=== PATIENT | male | born 1945 | race Caucasian/White ===

== ENCOUNTER → 2017-07-01 07:04 | Outpatient (CLI) | payer OTHER | END | disposition home or self-care (01) | LOC: LAB 07:04 | DX: D63.1 Anemia in chronic kidney disease (principal); N18.3 Chronic kidney disease, stage 3 (moderate); D63.8 Anemia in other chronic diseases classified elsewhere; D51.8 Other vitamin B12 deficiency anemias; I12.9 Hypertensive chronic kidney disease with stage 1 through stage 4 chronic kidney disease, or unspecified chronic kidney disease; I10 Essential (primary) hypertension; D50.8 Other iron deficiency anemias; K90.89 Other intestinal malabsorption; R80.8 Other proteinuria; N18.2 Chronic kidney disease, stage 2 (mild); D55.8 Other anemias due to enzyme disorders ==

== ENCOUNTER 2017-11-04 06:40 | Outpatient (CLI) | payer OTHER | END 2017-11-04 06:52 | disposition home or self-care (01) | LOC: LAB 06:40 | DX: D50.8 Other iron deficiency anemias (principal); I10 Essential (primary) hypertension; D63.1 Anemia in chronic kidney disease; N18.3 Chronic kidney disease, stage 3 (moderate) ==

== ENCOUNTER 2018-02-02 07:19 | Outpatient (CLI) | payer OTHER | END 2018-02-02 07:37 | disposition home or self-care (01) | LOC: LAB 07:19 | DX: N18.3 Chronic kidney disease, stage 3 (moderate) (principal); D63.8 Anemia in other chronic diseases classified elsewhere; D51.8 Other vitamin B12 deficiency anemias; I12.9 Hypertensive chronic kidney disease with stage 1 through stage 4 chronic kidney disease, or unspecified chronic kidney disease; I10 Essential (primary) hypertension; D50.8 Other iron deficiency anemias; E55.9 Vitamin D deficiency, unspecified; K90.89 Other intestinal malabsorption; R97.0 Elevated carcinoembryonic antigen [CEA]; R97.8 Other abnormal tumor markers; R97.20 Elevated prostate specific antigen [PSA] ==

== ENCOUNTER 2018-05-25 07:09 | Outpatient (CLI) | payer OTHER | END 2018-05-25 07:18 | disposition home or self-care (01) | LOC: LAB 07:09 | DX: R97.20 Elevated prostate specific antigen [PSA] (principal); D63.1 Anemia in chronic kidney disease; N18.3 Chronic kidney disease, stage 3 (moderate); D63.8 Anemia in other chronic diseases classified elsewhere; D51.8 Other vitamin B12 deficiency anemias; I10 Essential (primary) hypertension; D50.8 Other iron deficiency anemias; K90.89 Other intestinal malabsorption; R97.0 Elevated carcinoembryonic antigen [CEA]; R97.8 Other abnormal tumor markers ==

== ENCOUNTER 2019-05-10 07:15 | Outpatient (CLI) | payer OTHER | END 2019-05-10 07:21 | disposition home or self-care (01) | LOC: LAB 07:15 | DX: N18.3 Chronic kidney disease, stage 3 (moderate) (principal); R80.8 Other proteinuria ==

== ENCOUNTER 2019-12-15 07:18 | Outpatient (CLI) | payer OTHER | END 2019-12-15 07:30 | disposition home or self-care (01) | LOC: LAB 07:18 | PROVIDERS: ATTEND Internal Medicine Hematology & Oncology | DX: D50.8 Other iron deficiency anemias (principal); D51.8 Other vitamin B12 deficiency anemias; E03.8 Other specified hypothyroidism; D63.8 Anemia in other chronic diseases classified elsewhere; C44.42 Squamous cell carcinoma of skin of scalp and neck; D63.1 Anemia in chronic kidney disease; N18.3 Chronic kidney disease, stage 3 (moderate); I12.9 Hypertensive chronic kidney disease with stage 1 through stage 4 chronic kidney disease, or unspecified chronic kidney disease ==

== ENCOUNTER 2021-05-12 16:20 | Emergency (ER) | payer OTHER ==
[~2021-05-12] VITALS: Ht 165.1 cm; Wt 77.1 kg
[2021-05-12] MEDS ORDERED: DIOVAN320 MG PO (16:41)
[2021-05-12] MEDS ORDERED: SIMVASTATIN20 MG PO (16:41)
== END 2021-05-12 22:33 | disposition home or self-care (01) ==
LOC: ER 16:20
DX: T14.90XA Injury, unspecified, initial encounter (principal); W18.30XA Fall on same level, unspecified, initial encounter; Y92.9 Unspecified place or not applicable

== ENCOUNTER → 2021-09-17 | Emergency (ER) | payer OTHER ==
[~2021-09-17] VITALS: Ht 154.9 cm; Wt 65.8 kg
[~2021-09-17] MED LIST: DIOVAN320 MG PO; SIMVASTATIN20 MG PO
== END | disposition home or self-care (01) ==
LOC: ER 05:48
DX: H10.33 Unspecified acute conjunctivitis, bilateral (principal); B34.9 Viral infection, unspecified; Z20.822 Contact with and (suspected) exposure to COVID-19; Z91.018 Allergy to other foods

== ENCOUNTER 2021-12-01 15:40 | Inpatient (IN) | payer OTHER ==
[~2021-12-01] VITALS: Ht 170.2 cm; Wt 77.1 kg
[2021-12-01] MEDS ORDERED: PREDNISONE 20 MG. (16:11)
[2021-12-01] MEDS ORDERED: ZYLOPRIM100 M1 (16:11)
[2021-12-01] MEDS ORDERED: CELLCEPT500 MG (16:12)
[2021-12-01] MEDS ORDERED: AMLODIPINE 10 MG. (16:13)
--- NOTE | 2021-12-01 16:13 | NUR ---
PTE SE RECIBE POR DOLOR DE [place]OM[place] VOMITOS Y MAREOS REFIERE FAMILIAR Y PTE.
--- NOTE | 2021-12-01 16:51 | NUR ---
SE ADMINISTRAN MEDICAMENTOS Y BARBI DE MUESTRAS JEVON ORDEN MEDICA. SE ORIENTA A PTE SOBRE LOS MISMOS Y REFIERE COMPRENDER. TOLERA PROCEDIMIENTO. PTE PERMANECE EN SANG CON BARANDAS ELEVADAS. PENDIENTE XRAY ABDOMINAL.
--- NOTE | 2021-12-01 18:37 | NUR ---
SE REGULA LIQUIDOS IV A BAJAR A 200ML/HRS.
== END 2021-12-07 20:35 | disposition home or self-care (01) | DRG 418 ==
LOC: ER 15:40 → MEDJ 22:36 → SURH 12-03 15:44 → MEDJ 12-03 16:38
PROVIDERS: Specialist; ADMIT Internal Medicine; ATTEND Internal Medicine
PROC: BW21ZZZ Computerized Tomography (CT Scan) of Abdomen and Pelvis (ICD-10-PCS; 2021-12-01)
PROC: BW40ZZZ Ultrasonography of Abdomen (ICD-10-PCS; 2021-12-01)
PROC: BF37ZZZ Magnetic Resonance Imaging (MRI) of Pancreas (ICD-10-PCS; 2021-12-04)
PROC: 3E0T3BZ Introduction of Anesthetic Agent into Peripheral Nerves and Plexi, Percutaneous Approach (ICD-10-PCS; 2021-12-06)
PROC: 0FT44ZZ Resection of Gallbladder, Percutaneous Endoscopic Approach (ICD-10-PCS; principal; 2021-12-06 07:15)
DX: K85.10 Biliary acute pancreatitis without necrosis or infection (principal); D84.821 Immunodeficiency due to drugs; N18.4 Chronic kidney disease, stage 4 (severe); K80.50 Calculus of bile duct without cholangitis or cholecystitis without obstruction; D63.8 Anemia in other chronic diseases classified elsewhere; E87.5 Hyperkalemia; I12.9 Hypertensive chronic kidney disease with stage 1 through stage 4 chronic kidney disease, or unspecified chronic kidney disease; Z79.52 Long term (current) use of systemic steroids; Z20.822 Contact with and (suspected) exposure to COVID-19

== ENCOUNTER 2022-04-11 05:14 | Inpatient (IN) | payer OTHER ==
[~2022-04-11] VITALS: Ht 160 cm; Wt 73.5 kg
[~2022-04-11 05:14] MED LIST changes: +AMLODIPINE 10 MG.; +CELLCEPT500 MG; +PREDNISONE 20 MG.; +ZYLOPRIM100 M1
--- NOTE | 2022-04-11 05:35 | NUR ---
PACIENTE ALERTA Y ORIENTADO X3, QUIEN VIENE POR REFERIDO MEDICO DEL DR. PAULA JACK POR ANEMIA. SE MONITOREAN VS Y SE UBICA
--- NOTE | 2022-04-11 07:40 | NUR ---
PACIENTE EVALUADO POR EL QUIEN ORDENA TRATAMIENTO MEDICO. SE REALIZAN MUESTRAS DE LABORATORIO BAJO MEDIDAS ASEPTICAS Y SE ADMINISTRAN MEDICAMENTOS JEVON ORDEN MEDICA. SE HACE ENTREGA DE ENVASE U/A.
--- NOTE | 2022-04-11 09:13 | NUR ---
SE REALIZA REQUISION DE 2 UNIDADES DE PRBC EN HOLD.SE REALIZAN TUBOS PILOTOS Y SE ENVIAN A LABORATORIO. SE REALIZAN VENOPUNCIONES X2 PATENTES Y LIBRES DE EDEMA. SE LLAMA A Y SE NOTIFICAN PANICO DE HGB EN 7.1 ZOILA INDICA ACTIVAR LAS 2 UNIDADES EN HOLD. SE LLAMA A BANCO DE WILLIAM DE [employer] CON MS.AMARAL Y SE ACTIVAN LAS 2 UNIDADES PARA TRANSFUNDIR.
--- NOTE | 2022-04-11 17:20 | NUR ---
SE RECIBE PTE ALERTA Y ORIENTADO X3 EN SANG ACOMPANADO DE FAMILIAR, PTE CON H/L X2 COLOCADOS BEE DE EDEMA Y ENROJECIMIENTO. PTE CON 2 UNIDADES DE PRC COMPLETAS PARA TRANSFUNDIR PENDIENTES. SE RECIBE LLAMADA DE BANCO DE SANGR SOBRE DISPONIBILIDAD DE LAS MISMA A LAS 4;00PM.
== END 2022-04-12 13:31 | disposition home or self-care (01) | DRG 812 ==
LOC: ER 05:14 → MEDI 18:52
PROVIDERS: ADMIT Internal Medicine; ATTEND Internal Medicine
PROC: 30233N1 Transfusion of Nonautologous Red Blood Cells into Peripheral Vein, Percutaneous Approach (ICD-10-PCS; principal; 2022-04-11)
DX: D50.0 Iron deficiency anemia secondary to blood loss (chronic) (principal); D63.8 Anemia in other chronic diseases classified elsewhere; I10 Essential (primary) hypertension

== ENCOUNTER 2022-10-10 06:39 | Inpatient (IN) | payer OTHER ==
[~2022-10-10] VITALS: Ht 162.6 cm; Wt 74.4 kg
--- NOTE | 2022-10-10 06:49 | NUR ---
PACIENTE ALERTA Y ORIENTADO X 3. REFIERE DOLOR DE ESPALDA BAJA HACE UN MES. EL MISMO PRESENTA REFERIDO MEDICO DEL REINA DE QUINCY PARA POSIBLE ADMISION. SE PRESENTA REFERIDO A DR BRYSON Y SE JABARI PACIENTE EN MARIANNA DE ESPERA.
--- NOTE | 2022-10-10 08:56 | NUR ---
PTE EVALUADO POR DR SCOTT. SE ORIENTA A PTE SOBRE [place] MEDICO Y REFIERE ENTENDER. SE COLECTAN MUESTRAS DE WILLIAM BAJO MEDIDAS ASEPTICAS. SE CANALIZA EN LEFT ARM #[id number]. SE REALIZA EKG. SE NOTIFICA X-RAY.
[2022-10-13] MEDS ORDERED: ACETAZOLAMIDE250 MG (11:20)
[2022-10-13] MEDS ORDERED: PILOCARPINE HCL15 M3 (11:22)
[2022-10-13] MEDS ORDERED: CIPROFLOXACIN2.5 ML (11:22)
[2022-10-13] MEDS ORDERED: DORZOLAMIDE-TIM10 ML (11:22)
[2022-10-13] MEDS ORDERED: AMLODIPINE BESY10 MG (11:23)
[2022-10-13] MEDS ORDERED: FAMOTIDINE40 MG (11:23)
== END 2022-10-30 13:49 | disposition home or self-care (01) | DRG 673 ==
LOC: ER 06:39 → MEDJ 17:17 → MEDI 17:17 → MEDJ 10-13 10:29
PROVIDERS: General Practice; Internal Medicine; Internal Medicine Infectious Disease; Internal Medicine Nephrology; ADMIT Internal Medicine; ATTEND Internal Medicine
PROC: 02H633Z Insertion of Infusion Device into Right Atrium, Percutaneous Approach (ICD-10-PCS; principal; 2022-10-12)
PROC: B548ZZA Ultrasonography of Superior Vena Cava, Guidance (ICD-10-PCS; 2022-10-12)
PROC: 5A1D70Z Performance of Urinary Filtration, Intermittent, Less than 6 Hours Per Day (ICD-10-PCS; 2022-10-14)
PROC: 5A1D70Z Performance of Urinary Filtration, Intermittent, Less than 6 Hours Per Day (ICD-10-PCS; 2022-10-15)
PROC: BR29ZZZ Computerized Tomography (CT Scan) of Lumbar Spine (ICD-10-PCS; 2022-10-16)
PROC: BW2GZZZ Computerized Tomography (CT Scan) of Pelvic Region (ICD-10-PCS; 2022-10-16)
PROC: 5A1D70Z Performance of Urinary Filtration, Intermittent, Less than 6 Hours Per Day (ICD-10-PCS; 2022-10-17)
PROC: 0JH63XZ Insertion of Tunneled Vascular Access Device into Chest Subcutaneous Tissue and Fascia, Percutaneous Approach (ICD-10-PCS; 2022-10-18)
PROC: 02H633Z Insertion of Infusion Device into Right Atrium, Percutaneous Approach (ICD-10-PCS; 2022-10-18)
PROC: B518YZA Fluoroscopy of Superior Vena Cava using Other Contrast, Guidance (ICD-10-PCS; 2022-10-18)
PROC: 06PYX3Z Removal of Infusion Device from Lower Vein, External Approach (ICD-10-PCS; 2022-10-18)
PROC: BW21ZZZ Computerized Tomography (CT Scan) of Abdomen and Pelvis (ICD-10-PCS; 2022-10-19)
PROC: 5A1D70Z Performance of Urinary Filtration, Intermittent, Less than 6 Hours Per Day (ICD-10-PCS; 2022-10-20)
PROC: 5A1D70Z Performance of Urinary Filtration, Intermittent, Less than 6 Hours Per Day (ICD-10-PCS; 2022-10-22)
PROC: BR39ZZZ Magnetic Resonance Imaging (MRI) of Lumbar Spine (ICD-10-PCS; 2022-10-23)
PROC: BW2GZZZ Computerized Tomography (CT Scan) of Pelvic Region (ICD-10-PCS; 2022-10-23)
PROC: 5A1D70Z Performance of Urinary Filtration, Intermittent, Less than 6 Hours Per Day (ICD-10-PCS; 2022-10-24)
PROC: 5A1D70Z Performance of Urinary Filtration, Intermittent, Less than 6 Hours Per Day (ICD-10-PCS; 2022-10-27)
PROC: 5A1D70Z Performance of Urinary Filtration, Intermittent, Less than 6 Hours Per Day (ICD-10-PCS; 2022-10-29)
DX: I13.11 Hypertensive heart and chronic kidney disease without heart failure, with stage 5 chronic kidney disease, or end stage renal disease (principal); N18.6 End stage renal disease; E87.21 Acute metabolic acidosis; N17.8 Other acute kidney failure; M48.54XA Collapsed vertebra, not elsewhere classified, thoracic region, initial encounter for fracture; M51.35 Other intervertebral disc degeneration, thoracolumbar region; M48.05 Spinal stenosis, thoracolumbar region; D63.1 Anemia in chronic kidney disease; E87.5 Hyperkalemia; M54.59 Other low back pain; W18.30XA Fall on same level, unspecified, initial encounter; Y92.239 Unspecified place in hospital as the place of occurrence of the external cause
CPT/HCPCS: 72148

== ENCOUNTER 2022-11-11 17:49 | Emergency (ER) | payer OTHER ==
[~2022-11-11] VITALS: Ht 162.6 cm; Wt 65.8 kg
[~2022-11-11 17:49] MED LIST changes: +ACETAZOLAMIDE250 MG; +AMLODIPINE BESY10 MG; +CIPROFLOXACIN2.5 ML; +DORZOLAMIDE-TIM10 ML; +FAMOTIDINE40 MG; +PILOCARPINE HCL15 M3
== END 2022-11-12 01:18 | disposition home or self-care (01) ==
LOC: ER 17:49
DX: S14.159A Other incomplete lesion at unspecified level of cervical spinal cord, initial encounter (principal); S09.90XA Unspecified injury of head, initial encounter; W19.XXXA Unspecified fall, initial encounter; Y93.89 Activity, other specified; Y92.89 Other specified places as the place of occurrence of the external cause; Y99.8 Other external cause status; I10 Essential (primary) hypertension